=== PATIENT | male | born 1935 | race Caucasian/White ===

== ENCOUNTER 2020-08-22 20:21 | Emergency (ER) | payer OTHER, MEDICAID ==
[~2020-08-22] VITALS: Ht 165.1 cm; Wt 74.8 kg
--- NOTE | 2020-08-22 20:21 | NUR ---
PT BIBA BLS. TAKEN TO BED 9
--- NOTE | 2020-08-22 20:39 | NUR ---
Dr. Douglas examining patient.
[2020-08-22 20:40] VITALS: BP 107/62
--- NOTE | 2020-08-22 21:02 | NUR ---
see complete assessment.
[2020-08-22 21:07] LABS: BASOPHILS % (AUTO) 0.7 % (0.0-2.0); EOSINOPHILS % (AUTO) 0.8 % (0.0-4.0); HEMATOCRIT 28.7 % (36-52); HEMOGLOBIN 9.5 g/dL (12.0-18.0); LYMPHOCYTES # (AUTO) 0.8 K/uL (2.0-11.5); LYMPHOCYTES % (AUTO) 15.5 % (20.5-51.1); MEAN CORPUSCULAR HEMOGLOBIN 32 pg (27-31); MEAN CORPUSCULAR HGB CONC 33 g/dL (33-37); MEAN CORPUSCULAR VOLUME 95.7 fL (80-94); MONOCYTES # (AUTO) 0.4 K/uL (0.8-1.0); MONOCYTES % (AUTO) 8.1 % (1.7-9.3); NEUTROPHILS # (AUTO) 3.9 K/uL (1.8-7.7); NEUTROPHILS % (AUTO) 74.9 % (42.2-75.2); PLATELET COUNT (AUTO) 143 K/uL (140-450); RED CELL DISTRIBUTION WIDTH 15.1 % (11.6-13.7); WHITE BLOOD COUNT (AUTO) 5.2 K/uL (4.8-10.8)
[2020-08-22 21:18] LABS: ANION GAP 11.4 (8-16); ASPARTATE AMINOTRANSFERASE 22 U/L (15-37); CHLORIDE 109 mmol/L (98-107); CREATININE 1.5 mg/dL (0.6-1.3); GLUCOSE 159 mg/dL (74-106); POTASSIUM 4.4 mmol/L (3.5-5.1); SODIUM SERUM 143 mmol/L (136-145); TOTAL BILIRUBIN 0.3 mg/dL (0.0-1.0); UREA NITROGEN, BLOOD 34 mg/dL (7-18)
[2020-08-22 21:19] LABS: ACETAMINOPHEN < 0.5 ug/ml (10-30); SALICYLATE < 2.8 mg/dL (2.8-20.0)
--- NOTE | 2020-08-22 21:21 | NUR ---
pt taken to CT via radela.
--- NOTE | 2020-08-22 21:25 | NUR ---
pt returned from CT.
--- NOTE | 2020-08-22 21:37 | NUR ---
Dr. Douglas with pt and POA to explain CT results.
[2020-08-22] MEDS ORDERED: levETIRAcetam 1,000 MG in NACL 0.9% 100 ML IV ONE (22:05)
[2020-08-22] MEDS ORDERED: levETIRAcetam 100 MG/ML VIAL IV ONE (22:09)
--- NOTE | 2020-08-22 22:32 | NUR ---
pt remains laying down in semi fowlers position. pt a/o x 1 to name. gcs 13. able to move all extremities. POA at bedside. pt does not appear to be in distress at this time.
[2020-08-22] MEDS ORDERED: NICARDIPINE HYDROCHLORIDE 25 MG in NACL 0.9% 240 ML IV ONE (23:10)
[2020-08-22 23:21] VITALS: BP 169/138
[2020-08-22] MEDS ORDERED: NICARDIPINE HYDROCHLORIDE 2.5 MG/ML VIAL IV ONE (23:25)
[2020-08-22 23:31] LABS: PROTHROMBIN TIME 11.2 secs (10.8-13.4)
--- NOTE | 2020-08-22 23:51 | NUR ---
pt started on Nicardipine titration starting at 5mg/hour(50ml/hr)
--- NOTE | 2020-08-23 00:30 | NUR ---
increased titration to 7.5mg/hr.
--- NOTE | 2020-08-23 00:37 | NUR ---
report endorsed to [facility] Nurse Destinee. ETA for transport is [address] Tejeda.
--- NOTE | 2020-08-23 00:43 | NUR ---
[facility] TRANSPORT AT BEDSIDE
--- NOTE | 2020-08-23 00:51 | NUR ---
Patient to be transferred to [facility]. 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 Receiving facility has accepting physician and available space. ER physician has signed transfer form. Patient or responsible constitution party has agreed to transfer and signed form. Patient belongings inventoried and will be sent with patient. Copy of nursing notes, lab reports, EKG, Physicians Orders and X-rays to be sent with patient. Report called to Destinee DEVRIES at receiving facility. [facility] ambulance service has been called for transfer. ETA is 15 minutes.
--- NOTE | 2020-08-23 00:53 | NUR ---
PT TAKEN BY [facility] TRANSPORT TO [facility] ER
--- NOTE | 2020-08-23 19:24 | NUR ---
LATE ENTRY-- NICARDIPINE DRIP DISCONTINUED AT 0053.
== END 2020-08-23 00:53 | disposition designated cancer center or children's hospital (05) ==
LOC: MED 20:21
DX: S06.5X0A Traumatic subdural hemorrhage without loss of consciousness, initial encounter (principal); R55 Syncope and collapse; E11.9 Type 2 diabetes mellitus without complications; I10 Essential (primary) hypertension; F03.90 Unspecified dementia, unspecified severity, without behavioral disturbance, psychotic disturbance, mood disturbance, and anxiety; Z86.73 Personal history of transient ischemic attack (TIA), and cerebral infarction without residual deficits; Z20.822 Contact with and (suspected) exposure to COVID-19; W18.39XA Other fall on same level, initial encounter; Y93.89 Activity, other specified; Y92.89 Other specified places as the place of occurrence of the external cause; Y99.8 Other external cause status
CPT/HCPCS: 36415; 70450; 71045; 73130; 80053; 82550; 84484; 85025; 85610; 85730; 86886; 86900; 86901; 87426; 90471; 90715; 93005; 96365; 96367; 99291; G0480; G0482; J1953; J7030

== ENCOUNTER 2021-02-06 15:11 | Inpatient (IN) | payer OTHER, MEDICAID, SELFPAY ==
[~2021-02-06] VITALS: Ht 165.1 cm; Wt 61.3 kg
[2021-02-06 15:29] VITALS: BP 117/59
--- NOTE | 2021-02-06 15:38 | NUR ---
PT W/C ASSISTED TO BED 3
--- NOTE | 2021-02-06 15:38 | NUR ---
PT BROUGHT TO BED 3 VIA WHEELCHAIR
--- NOTE | 2021-02-06 15:50 | NUR ---
LABS COLLECTED AND GIVEN TO PORTFOLIO ARCHITECT
--- NOTE | 2021-02-06 16:02 | NUR ---
RAD AT BEDSIDE
--- NOTE | 2021-02-06 16:03 | NUR ---
86 YO MALE BIB FAMILY FROM [facility] C/O JADE, FEVER SINCE YESTERDAY AND C/O COUGH X 2 DAYS. ORAL TEMP 102 AT THIS TIME. FAMILY GAVE TYLENOL 1 HOUR AGO. SPOUSE AT BEDSIDE. PT HAS HX OF DEMENTIA, POOR HISTORIAN. AT BEDSIDE. SKIN DRY AND INTACT. GROIN AREA HAS RASH ON PENIS THAT PATIENT SCRATCHES UPON ASSESMENT. PT WEARS DIAPER. PERRLA, SENSATION AND ACTIVE ROM, SOME WEAKNESS TO LEFT SIDE LOWER EXT R/T HX OF NUMEROUS STROKES LAST STROKE APPROX 1YR & HALF AGO ACCORDING TO DAUGHTER. PT HAS GOOD UPPER BODY STRENGTH. ALERT AND ORIENTED X1 TO SELF. RR EVEN AND UNLABORED. PLACED ON MONITOR, SIDE RAILS UP, BED IN LOWEST POSITION. PMH: DM, HTN, DEMENTIA, STROKE, PACE MAKER TO L UPPER CHEST. NKDA
[2021-02-06 16:11] LABS: BASOPHILS % (AUTO) 0.4 % (0.0-2.0); EOSINOPHILS # (AUTO) 0.1 K/uL (0-0.4); EOSINOPHILS % (AUTO) 1.8 % (0.0-4.0); HEMOGLOBIN 9.6 g/dL (12.0-18.0); LYMPHOCYTES # (AUTO) 0.6 K/uL (2.0-11.5); MEAN CORPUSCULAR HEMOGLOBIN 33 pg (27-31); MEAN CORPUSCULAR HGB CONC 33 g/dL (33-37); MEAN CORPUSCULAR VOLUME 98.1 fL (80-94); MONOCYTES # (AUTO) 0.7 K/uL (0.8-1.0); NEUTROPHILS # (AUTO) 6.3 K/uL (1.8-7.7); NEUTROPHILS % (AUTO) 80.8 % (42.2-75.2); PLATELET COUNT (AUTO) 139 K/uL (140-450); RED BLOOD CELL COUNT(AUTO) 2.96 MIL/uL (4.20-6.10); RED CELL DISTRIBUTION WIDTH 14.2 % (11.6-13.7); WHITE BLOOD COUNT (AUTO) 7.8 K/uL (4.8-10.8)
[2021-02-06 16:29] LABS: ALBUMIN 3.3 g/dL (3.4-5.0); ASPARTATE AMINOTRANSFERASE 23 U/L (15-37); CARBON DIOXIDE 25.2 mmol/L (21-32); CHLORIDE 107 mmol/L (98-107); CREATININE 1.5 mg/dL (0.6-1.3); GLUCOSE 222 mg/dL (74-106); POTASSIUM 4.2 mmol/L (3.5-5.1); SODIUM SERUM 140 mmol/L (136-145); TOTAL BILIRUBIN 0.5 mg/dL (0.0-1.0); UREA NITROGEN, BLOOD 32 mg/dL (7-18)
[2021-02-06 16:48] LABS: LACTATE DEHYDROGENASE 194 U/L (85-227)
--- NOTE | 2021-02-06 16:52 | NUR ---
GANESH TIMMONS [phone]
--- NOTE | 2021-02-06 16:53 | NUR ---
RIO MALIK INFLUENZA COLLECTED AND WALKED OVER TO LAB.
[2021-02-06 17:02] LABS: PROTHROMBIN TIME 10.1 secs (10.8-13.4)
--- NOTE | 2021-02-06 17:13 | NUR ---
URINE COLLECTED VIA STRAIGHT CATH USING STERILE TECHNIQUE, SAMPLE WALKED TO LAB.
[2021-02-06 17:27] LABS: APPEARANCE,URINE CLEAR (CLEAR); BILIRUBIN,URINE NEGATIVE (NEGATIVE); BLOOD, URINE NEGATIVE (NEGATIVE); COLOR,URINE YELLOW (YELLOW); LEUKOCYTE ESTERASE ,URINE NEGATIVE (NEGATIVE); NITRITE, URINE NEGATIVE (NEGATIVE); UGLUCOSE NEGATIVE (NEGATIVE)
[2021-02-06] MEDS ORDERED: AZITHROMYCIN 500 MG in DEXTROSE 5% 250 ML IV ONE (17:40)
[2021-02-06] MEDS ORDERED: DEXAMETHASONE 10 MG/ML VIAL IVP ONE (17:40)
[2021-02-06] MEDS ORDERED: NACL 0.9% 500 ML IV ONE (17:50)
--- NOTE | 2021-02-06 18:20 | NUR ---
PATIENT REMOVED IV TO R AC, PATIENT ALSO DISCONECTED O2 SAT. PT CLEANED AND REPOSITIONED.
[2021-02-06] MEDS ORDERED: LORazepam 2 MG/ML VIAL IVP ONE (18:25)
[2021-02-06] MEDS ORDERED: LORazepam 2 MG/ML VIAL ONE (18:28)
[2021-02-06] MEDS ORDERED: ACETAMINOPHEN 650 MG/20.3 ML UDC PO ONE (18:30)
[2021-02-06] MEDS ORDERED: cefTRIAXone 1,000 MG VIAL ONE (18:41)
[2021-02-06] MEDS ORDERED: AZITHROMYCIN 500 MG INJ VIAL IV ONE (18:58)
[2021-02-06] MEDS ORDERED: DEXAMETHASONE 10 MG/ML VIAL ONE (18:59)
--- NOTE | 2021-02-06 19:00 | NUR ---
RECEIVED REPORT FROM JAYCOB SHOEMAKER FOR CONTINUITY OF CARE
--- NOTE | 2021-02-06 19:20 | NUR ---
SPOKE TO REGARDING UPDATE ON PATIENT
[2021-02-06] MEDS ORDERED: guaiFENesin DM 200/20 MG-10 ML 10 ML UDC PO PRN (21:25)
[2021-02-06] MEDS ORDERED: ONDANSETRON 4 MG/2 ML VIAL IM/IVP PRN (21:25)
[2021-02-06] MEDS ORDERED: ALBUTEROL SULFATE/IPRATROPIU 3 ML SOL IH PRN (21:25)
[2021-02-06] MEDS ORDERED: POTASSIUM CHLORIDE 10 MEQ TABER PO PRN (21:25)
[2021-02-06] MEDS ORDERED: DOCUSATE SODIUM 100 MG GELCAP PO PRN (21:25)
[2021-02-06] MEDS ORDERED: HYDROcodone/APAP 7.5/325 MG 1 TAB PO PRN (21:25)
[2021-02-06] MEDS ORDERED: ACETAMINOPHEN 325 MG TAB PO PRN (21:25)
[2021-02-06 21:56] LABS: CHOL/HDL RATIO 2.9 (1-4.5); FREE T4 (FREE THYROXINE) 0.75 ng/dL (0.76-1.46); MAGNESIUM 1.9 mg/dL (1.8-2.4); PHOSPHORUS 2.6 mg/dL (2.5-4.9); THYROID STIMULATING HORMONE 2.21 uIU/mL (0.34-3.74)
--- NOTE | 2021-02-06 22:00 | NUR ---
ACCOMPANIED PT TO CT SCAN
--- NOTE | 2021-02-06 22:10 | NUR ---
PT IS BACK FROM CT SCAN
[2021-02-06] MEDS ORDERED: PIPERACILLIN/TAZOBACTAM 3.375 GM VIAL IV ONE (22:27)
[2021-02-06] MEDS: PIPERACILLIN/TAZOBACTAM 3.375 GM in DEXTROSE 5% 50 ML IV SCH (22:55)
[2021-02-06] MEDS ORDERED: LORazepam 2 MG/ML VIAL IM/IVP ONE (23:45)
[2021-02-07] MEDS: DEXT 5% /NACL 0.9% 1,000 ML IV SCH ×4 (00:21→22:25)
--- NOTE | 2021-02-07 02:00 | NUR ---
Patient appears to be resting comfortably in bed. Vital Signs within normal limits. Respirations even and unlabored.
--- NOTE | 2021-02-07 03:00 | NUR ---
PT IS VERY CONFUSED AND PULLING OUT MEDICAL TUBES
--- NOTE | 2021-02-07 03:25 | NUR ---
ADMINISTERED AMBIEN 5MG FOR INSOMNIA
[2021-02-07] MEDS: ZOLPIDEM 5 MG TAB PO PRN (03:26)
[2021-02-07] MEDS: LORazepam 2 MG/ML VIAL IVP PRN ×3 (04:27→21:55)
[2021-02-07] MEDS ORDERED: PIPERACILLIN/TAZOBACTAM 3.375 GM VIAL IV ONE (05:43)
[2021-02-07] MEDS: PIPERACILLIN/TAZOBACTAM 3.375 GM in DEXTROSE 5% 50 ML IV SCH ×3 (06:42→21:49)
[2021-02-07 06:43] LABS: BASOPHILS % (AUTO) 0.1 % (0.0-2.0); HEMATOCRIT 29.2 % (36-52); HEMOGLOBIN 9.7 g/dL (12.0-18.0); LYMPHOCYTES # (AUTO) 0.7 K/uL (2.0-11.5); LYMPHOCYTES % (AUTO) 9.8 % (20.5-51.1); MEAN CORPUSCULAR HEMOGLOBIN 33 pg (27-31); MEAN CORPUSCULAR HGB CONC 33 g/dL (33-37); MEAN CORPUSCULAR VOLUME 98.6 fL (80-94); MONOCYTES # (AUTO) 0.4 K/uL (0.8-1.0); MONOCYTES % (AUTO) 5.6 % (1.7-9.3); NEUTROPHILS # (AUTO) 6.3 K/uL (1.8-7.7); NEUTROPHILS % (AUTO) 84.5 % (42.2-75.2); PLATELET COUNT (AUTO) 139 K/uL (140-450); RED BLOOD CELL COUNT(AUTO) 2.96 MIL/uL (4.20-6.10); RED CELL DISTRIBUTION WIDTH 14.5 % (11.6-13.7); WHITE BLOOD COUNT (AUTO) 7.5 K/uL (4.8-10.8)
[2021-02-07 06:49] LABS: ANION GAP 14.6 (8-16); CARBON DIOXIDE 23.3 mmol/L (21-32); CHLORIDE 107 mmol/L (98-107); CREATININE 1.2 mg/dL (0.6-1.3); GLUCOSE 264 mg/dL (74-106); POTASSIUM 3.9 mmol/L (3.5-5.1); SODIUM SERUM 141 mmol/L (136-145); UREA NITROGEN, BLOOD 24 mg/dL (7-18)
--- NOTE | 2021-02-07 07:20 | NUR ---
REPORT RECEIVED FROM JAYCOB CLAY. DANNIELLE OF CARE RECEIVED
--- NOTE | 2021-02-07 07:23 | NUR ---
GIVEN REPORT TO JAYCOB BERRIOS. TRANSFER OF CARE AT THIS TIME
--- NOTE | 2021-02-07 07:54 | NUR ---
RECEIVED PATIENT FROM ER VIA GURNEY. PATIENT IS ADMITTED FOR PNA AND SEPSIS. IV SITE AT LEFT AC 20G, PATENT AND INTACT. RESPIRATIONS ARE EVEN AND UNLABORED. PATIENT IS A&O X1. ALL SAFETY PRECAUTIONS IN PLACE. WILL CONTINUE TO MONITOR.
[2021-02-07] MEDS: ALBUTEROL SULFATE/IPRATROPIU 3 ML SOL IH SCH ×3 (08:03→19:50)
--- NOTE | 2021-02-07 08:06 | NUR ---
Patient will be admitted to care of Dr. Evelio Champagne. Admited to Tele. Will go to room 114. Belongings list completed. Report to JAYCOB Tracey.
--- NOTE | 2021-02-07 09:45 | NUR ---
PT WAS SEEN FOR DYSPHAGIA. PT WAS ABLE TO SAFELY SWALLOW PUREE DIET WITH THIN LIQUID WITHOUT S/S OF ASPIRATION. RECOMMENDATION PUREE DIET WITH THIN LIQUID
--- NOTE | 2021-02-07 10:00 | NUR ---
PATIENT'S BLOOD PRESSURE IS 207/701 WITH HR OF 66. NO S/S OF DISTRESS BUT PATIENT IS CONFUSED. DOCTOR IS AWARE.
--- NOTE | 2021-02-07 10:40 | NUR ---
PATIENT HAS BEEN SCREENED AND CATEGORIZED HIGH NUTRITION RISK. PATIENT WILL BE SEEN WITHIN 1-2 DAYS OF ADMISSION. 02/07/21-02/08/[address]
[2021-02-07] MEDS: PANTOPRAZOLE 40 MG TABEC PO SCH (10:55)
--- NOTE | 2021-02-07 11:00 | NUR ---
SPOKE WITH PATIENT'S DAUGHTER JASON ABOUT MEDICAL HISTORY AND POC. PATIENT'S DAUGHTER VERBALIZED UNDERSTANDING.
[2021-02-07] MEDS: amLODIPine 5 MG TAB PO SCH (12:41)
--- NOTE | 2021-02-07 12:45 | NUR ---
ADMINISTERED SCHEDULED MEDICATIONS. PATIENT IS STABLE, NO S/S OF DISTRESS. ALL SAFETY PRECAUTIONS IN PLACE. WILL CONTINUE TO MONITOR.
--- NOTE | 2021-02-07 14:01 | NUR ---
RECEIVED TORB FOR CCHO PUREE DIET FROM DR. ARRIAGA.
--- NOTE | 2021-02-07 14:57 | NUR ---
02/07/21 RD INITIAL ASSESSMENT COMPLETED PLEASE REFER TO NUTRITION ASSESSMENT UNDER CARE ACTIVITY FOR ESTIMATED NUTRITIONAL NEEDS. 1. RECOMMENDED PUREE CCHO DIET TOLERATED 2. RECOMMENDED GLUCERNA BID 3. PROVIDE ASSISTANCE WITH MEALS 4. RD TO FOLLOW-UP 3-5 DAYS, MODERATE RISK NIKKO WEBSTER, RD
--- NOTE | 2021-02-07 16:45 | NUR ---
CHECKED ON PATIENT. PATIENT IS STABLE. NO S/S OF DISTRESS. RESPIRATIONS ARE EVEN AND UNLABORED. ALL SAFETY PRECAUTIONS IN PLACE.
--- NOTE | 2021-02-07 19:25 | NUR ---
RECEIVED REPORT FROM ERICKA DEVRIES FOR CONTINUITY OF CARE. PT SITTING UP AAO. NO APPARENT S/S OF ACUTE DISTRESS. BREATHING EVEN AND UNLABORED ON RA WITH O2 SAT OF 99%. NO C/O CP, SOB OR PAIN. R FA 22G INTACT/PATENT WITH D5NS@120ML/HR. POC AND WHITE COMMUNICATION BOARD UPDATED. BED IN LOW/LOCKED POSITION. CALL LIGHT WITHIN REACH. PT ENCOURAGED TO CALL FOR ANY NEEDS/ASSISTANCE. WILL CONTINUE TO MONITOR.
--- NOTE | 2021-02-07 19:30 | NUR ---
ENDORSED PATIENT TO FROG FARMER RN FOR CONTINUITY OF CARE. PATIENT IS STABLE.
[2021-02-07 20:00] VITALS: BP 178/91
[2021-02-08] VITALS: BP 170/75
[2021-02-08] MEDS: hydrALAZINE 20 MG/ML VIAL IVP PRN ×7 (02:25→12:03)
[2021-02-08 04:00] VITALS: BP 163/67
[2021-02-08] MEDS: PIPERACILLIN/TAZOBACTAM 3.375 GM in DEXTROSE 5% 50 ML IV SCH ×3 (05:06→20:03)
[2021-02-08] MEDS ORDERED: CLINDAMYCIN 600 MG/4 ML VIAL ONE ×2 (05:53→06:50)
[2021-02-08] MEDS: DEXT 5% /NACL 0.9% 1,000 ML IV SCH ×3 (06:45→23:32)
--- NOTE | 2021-02-08 07:30 | NUR ---
RECEIVED REPORT FROM COTTON WASHER RN FOR CONTINUITY OF CARE. PATIENT IS RESTING IN BED. NO S/S OF DISTRESS. ALL SAFETY PRECAUTIONS IN PLACE.
[2021-02-08 07:31] LABS: ANION GAP 14.8 (8-16); BASOPHILS % (AUTO) 0.2 % (0.0-2.0); CARBON DIOXIDE 22.8 mmol/L (21-32); CHLORIDE 106 mmol/L (98-107); CREATININE 1.1 mg/dL (0.6-1.3); EOSINOPHILS # (AUTO) 0.2 K/uL (0-0.4); EOSINOPHILS % (AUTO) 3.5 % (0.0-4.0); GLUCOSE 210 mg/dL (74-106); HEMATOCRIT 32.4 % (36-52); HEMOGLOBIN 10.9 g/dL (12.0-18.0); LYMPHOCYTES # (AUTO) 1.4 K/uL (2.0-11.5); LYMPHOCYTES % (AUTO) 20.7 % (20.5-51.1); MEAN CORPUSCULAR HEMOGLOBIN 33 pg (27-31); MEAN CORPUSCULAR HGB CONC 34 g/dL (33-37); MEAN CORPUSCULAR VOLUME 97.1 fL (80-94); MONOCYTES # (AUTO) 0.7 K/uL (0.8-1.0); MONOCYTES % (AUTO) 10.5 % (1.7-9.3); NEUTROPHILS # (AUTO) 4.5 K/uL (1.8-7.7); NEUTROPHILS % (AUTO) 65.1 % (42.2-75.2); PLATELET COUNT (AUTO) 151 K/uL (140-450); POTASSIUM 3.6 mmol/L (3.5-5.1); RED BLOOD CELL COUNT(AUTO) 3.34 MIL/uL (4.20-6.10); RED CELL DISTRIBUTION WIDTH 13.9 % (11.6-13.7); SODIUM SERUM 140 mmol/L (136-145); UREA NITROGEN, BLOOD 13 mg/dL (7-18)
[2021-02-08] MEDS: ALBUTEROL SULFATE/IPRATROPIU 3 ML SOL IH SCH ×3 (07:50→19:00)
[2021-02-08 08:00] VITALS: BP 172/67
[2021-02-08 08:07] LABS: T4 (THYROXINE) 4.6 ug/dL (4.5-12.0)
[2021-02-08 09:06] LABS: FOLIC ACID 7.3 ng/mL (>3.0)
[2021-02-08] MEDS: PANTOPRAZOLE 40 MG TABEC PO SCH (10:52)
[2021-02-08] MEDS: amLODIPine 5 MG TAB PO SCH (10:52)
[2021-02-08 12:00] VITALS: BP 141/42
--- NOTE | 2021-02-08 12:04 | NUR ---
DID NOT ADMINISTER SCHEDULED DEXTROSE 5% SODIUM CHLORIDE 0.9% AT 0645 AND HYDRALAZINE REASSESSMENT AT 0325.
--- NOTE | 2021-02-08 14:00 | NUR ---
PATIENT REMOVED IV. INSERTED A NEW 22G IV AT RIGHT AC. IV IS PATENT AND INTACT AND FLUSHES WELL. ALL SAFETY PRECAUTIONS IN PLACE.
--- NOTE | 2021-02-08 14:15 | NUR ---
PATIENT'S JASON IS AT THE BEDSIDE WITH PATIENT. PATIENT IS RESTING IN BED. ALL SAFETY PRECAUTIONS IN PLACE.
[2021-02-08 16:00] VITALS: BP 161/52
--- NOTE | 2021-02-08 19:20 | NUR ---
ENDORSED PATIENT TO MEAT PROCESSOR RN FOR CONTINUITY OF CARE. PATIENT IS STABLE.
--- NOTE | 2021-02-08 19:24 | NUR ---
RECEIVED BEDSIDE REPORT FROM DAY RN. PT IS AAOX1. HX DEMENTIA. RESPIRATIONS ARE EQUAL AND UNLABORED ON RA. PT IS BEDREST HX CVA WITH L SIDE WEAKNESS. IV ON RAC INFUSING D5NS AT 120ML/H. PT IS INCONTINENT. PER DAY RN SKIN IS INTACT. C/C FEVER,COUGH,JADE. CHAKA AND PCR NEGATIVE. DX PNA ON IV ABX. POC DISCUSSED WITH PT, NEEDS REINFORCEMENT. BED ALARM ON. CALL LIGHT IS WITHIN REACH. WILL CONTINUE TO MONITOR.
[2021-02-08 20:00] VITALS: BP 141/66
--- NOTE | 2021-02-08 20:03 | NUR ---
VSS. CONRAD MEDICATION GIVEN PER ORDERS. EDUCATION GIVEN PT UNABLE TO VERBALIZED UNDERSTANDING. PT IS AAOX1 MOZAMBICAN SPEAKING. PT ATTEMPTING TO GET OUT OF BED REORIENTED PATIENT. BED ALARM ON.
--- NOTE | 2021-02-08 21:30 | NUR ---
NEW IV STARTED ON R FA 22G ON FIRST ATTEMPT PT TOLERATED WELL. CALL LIGHT IS WITHIN REACH
--- NOTE | 2021-02-08 23:10 | NUR ---
PATIENT WAS CLEANED AND REPOSITION WITH ASSISTANCE OF ANOTHER RN. PT TOLERATED WELL. SAFETY MEASURES ARE IN PLACE. WILL CONTINUE TO MONITOR.
[2021-02-09] VITALS: BP 139/57
--- NOTE | 2021-02-09 | NUR ---
VITAL SIGNS ARE STABLE. PT APPEARS TO BE ASLEEP. SAFETY MEASURES ARE IN PLACE. WILL CONTINUE TO MONITOR.
--- NOTE | 2021-02-09 02:05 | NUR ---
rounds made. pt appears to be asleep, chest rise and fall noted. call light is within reach. will continue to monitor.
[2021-02-09 04:00] VITALS: BP 105/72
--- NOTE | 2021-02-09 04:00 | NUR ---
VITAL SIGNS ARE WITHIN NORMAL LIMITS. PATIENT WAS CLEANED AND REPOSITION WITH ASSISTANCE OF RT. SAFETY MEASURES ARE IN PLACE. WILL CONTINUE TO MONITOR.
[2021-02-09] MEDS: PIPERACILLIN/TAZOBACTAM 3.375 GM in DEXTROSE 5% 50 ML IV SCH ×3 (04:19→21:06)
[2021-02-09] MEDS: LORazepam 2 MG/ML VIAL IVP PRN ×2 (04:45→20:51)
--- NOTE | 2021-02-09 04:45 | NUR ---
PATIENT KEPT ATTEMPTING TO GET OUT OF BED DESPITE FREQUENT REDIRECTION. PATIENT WOULD NOT FOLLOW DIRECTION PULLING ON LINES AND REMOVING TELE BOX. ADMIN PRN ATIVAN. PT WAS CLEANED AND REPOSITION, BED ALARM ON WILL MONITOR FREQUENTLY.
[2021-02-09 05:15] LABS: BASOPHILS % (AUTO) 0.2 % (0.0-2.0); EOSINOPHILS # (AUTO) 0.2 K/uL (0-0.4); EOSINOPHILS % (AUTO) 4.3 % (0.0-4.0); HEMATOCRIT 29.1 % (36-52); HEMOGLOBIN 9.8 g/dL (12.0-18.0); LYMPHOCYTES % (AUTO) 18.9 % (20.5-51.1); MEAN CORPUSCULAR HEMOGLOBIN 33 pg (27-31); MEAN CORPUSCULAR HGB CONC 34 g/dL (33-37); MEAN CORPUSCULAR VOLUME 97.3 fL (80-94); MONOCYTES # (AUTO) 0.6 K/uL (0.8-1.0); MONOCYTES % (AUTO) 12.4 % (1.7-9.3); NEUTROPHILS # (AUTO) 3.3 K/uL (1.8-7.7); NEUTROPHILS % (AUTO) 64.2 % (42.2-75.2); PLATELET COUNT (AUTO) 160 K/uL (140-450); RED BLOOD CELL COUNT(AUTO) 2.99 MIL/uL (4.20-6.10); RED CELL DISTRIBUTION WIDTH 13.8 % (11.6-13.7); WHITE BLOOD COUNT (AUTO) 5.1 K/uL (4.8-10.8)
[2021-02-09 06:11] LABS: ANION GAP 12.2 (8-16); CARBON DIOXIDE 23.5 mmol/L (21-32); CHLORIDE 110 mmol/L (98-107); CREATININE 1.2 mg/dL (0.6-1.3); GLUCOSE 154 mg/dL (74-106); POTASSIUM 3.7 mmol/L (3.5-5.1); SODIUM SERUM 142 mmol/L (136-145); UREA NITROGEN, BLOOD 17 mg/dL (7-18)
[2021-02-09] MEDS: ALBUTEROL SULFATE/IPRATROPIU 3 ML SOL IH SCH ×4 (07:00→19:21)
--- NOTE | 2021-02-09 07:25 | NUR ---
GAVE BEDSIDE REPORT TO DAY RN. PT ENDORSED IN STABLE CONDITION.
--- NOTE | 2021-02-09 07:27 | NUR ---
RECEIVED REPORT FROM ENVIRONMENT FRIENDLY LANDSCAPE DESIGNER RN FOR CONTINUITY OF CARE. PATIENT IS RESTING IN BED. NO S/S OF DISTRESS. ALL SAFETY PRECAUTIONS IN PLACE.
[2021-02-09 08:00] VITALS: BP 177/65
[2021-02-09] MEDS: DEXT 5% /NACL 0.9% 1,000 ML IV SCH ×2 (08:39→16:55)
[2021-02-09] MEDS: amLODIPine 5 MG TAB PO SCH (09:53)
[2021-02-09] MEDS: PANTOPRAZOLE 40 MG TABEC PO SCH (09:53)
--- NOTE | 2021-02-09 10:00 | NUR ---
ADMINISTERED SCHEDULED MEDICATIONS. PATIENT DOES NOT S/S OF DISTRESS. ALL SAFETY PRECAUTIONS IN PLACE.
[2021-02-09 12:00] VITALS: BP 178/67
--- NOTE | 2021-02-09 13:00 | NUR ---
PATIENT'S DAUGHTER JASON IS AT BEDSIDE. PATIENT IS STABLE. NO S/S OF DISTRESS. ALL SAFETY PRECAUTIONS IN PLACE.
--- NOTE | 2021-02-09 14:00 | NUR ---
CHANGED PATIENT WITH ASSISTANCE OF LIVESTOCK AUCTIONEER. PATIENT WAS COOPERATIVE. NO S/S OF DISTRESS. ALL SAFETY PRECAUTIONS IN PLACE.
[2021-02-09 16:00] VITALS: BP 135/54
--- NOTE | 2021-02-09 19:30 | NUR ---
LATE ENTRY: ZITHROMAX 500MG RUN @250ML/HR ENDED AT 2015. BOLUS NS ENDED 1819.
--- NOTE | 2021-02-09 19:43 | NUR ---
ENDORSED PATIENT TO MASSAGE THERAPY INSTRUCTOR RN FOR CONTINUITY OF CARE. PATIENT IS STABLE.
[2021-02-09 20:00] VITALS: BP 164/70
[2021-02-09] MEDS: ZOLPIDEM 5 MG TAB PO PRN (20:49)
[2021-02-09] MEDS: hydrALAZINE 20 MG/ML VIAL IVP PRN (20:54)
[2021-02-10] VITALS: BP 155/71
[2021-02-10] MEDS: DEXT 5% /NACL 0.9% 1,000 ML IV SCH ×2 (02:02→08:45)
[2021-02-10 04:00] VITALS: BP 177/61
[2021-02-10] MEDS: hydrALAZINE 20 MG/ML VIAL IVP PRN (04:24)
[2021-02-10] MEDS: LORazepam 2 MG/ML VIAL IVP PRN (04:25)
[2021-02-10] MEDS: PIPERACILLIN/TAZOBACTAM 3.375 GM in DEXTROSE 5% 50 ML IV SCH ×2 (04:38→13:00)
[2021-02-10 06:07] LABS: BASOPHILS % (AUTO) 0.3 % (0.0-2.0); EOSINOPHILS # (AUTO) 0.1 K/uL (0-0.4); EOSINOPHILS % (AUTO) 1.7 % (0.0-4.0); HEMATOCRIT 30.6 % (36-52); HEMOGLOBIN 10.1 g/dL (12.0-18.0); LYMPHOCYTES # (AUTO) 1.2 K/uL (2.0-11.5); LYMPHOCYTES % (AUTO) 15.3 % (20.5-51.1); MEAN CORPUSCULAR HEMOGLOBIN 33 pg (27-31); MEAN CORPUSCULAR HGB CONC 33 g/dL (33-37); MEAN CORPUSCULAR VOLUME 98.4 fL (80-94); MONOCYTES # (AUTO) 0.8 K/uL (0.8-1.0); MONOCYTES % (AUTO) 10.7 % (1.7-9.3); NEUTROPHILS # (AUTO) 5.6 K/uL (1.8-7.7); PLATELET COUNT (AUTO) 191 K/uL (140-450); RED BLOOD CELL COUNT(AUTO) 3.11 MIL/uL (4.20-6.10); RED CELL DISTRIBUTION WIDTH 13.9 % (11.6-13.7); WHITE BLOOD COUNT (AUTO) 7.8 K/uL (4.8-10.8)
[2021-02-10 07:09] LABS: ANION GAP 15.8 (8-16); CARBON DIOXIDE 20.5 mmol/L (21-32); CHLORIDE 108 mmol/L (98-107); CREATININE 1.2 mg/dL (0.6-1.3); GLUCOSE 188 mg/dL (74-106); POTASSIUM 3.3 mmol/L (3.5-5.1); SODIUM SERUM 141 mmol/L (136-145); UREA NITROGEN, BLOOD 10 mg/dL (7-18)
--- NOTE | 2021-02-10 07:10 | NUR ---
RECEIVED REPORT FROM INBOUND SALES CONSULTANT RN FOR CONTINUITY OF CARE. PATIENT IS RESTING IN BED. NO S/S OF DISTRESS. BREATH EVEN UNLABORED ALL SAFETY PRECAUTIONS IN PLACE
--- NOTE | 2021-02-10 07:14 | NUR ---
REPORT GIVEN TO FIDENCIO RN FOR CONTINUITY OF CARE. PT SITTING UP AAOX1. NO APPARENT S/S OF ACUTE DISTRESS. BREATHING EVEN AND UNLABORED. FIDENCIO TO F/U WITH DR. COX TO FOR ORDERS. BED IN LOW/LOCKED POSITION. CALL LIGHT WITHIN REACH. ALL NEEDS MET AT THIS TIME.
[2021-02-10] MEDS: ALBUTEROL SULFATE/IPRATROPIU 3 ML SOL IH SCH ×2 (07:31→13:39)
--- NOTE | 2021-02-10 07:42 | NUR ---
RECEIVED ORDER FROM DR. COX FOR RESTRAINTS FOR PT, PT ATTEMPTING TO AMBULATE AND AT HIGH RISK FOR INJURY. ALTERNATIVE MEASURES ATTEMPTED AND UNSUCCESSFUL
[2021-02-10 08:00] VITALS: BP 189/88
--- NOTE | 2021-02-10 08:30 | NUR ---
PT SITTING UP AAOX1. NO APPARENT S/S OF ACUTE DISTRESS. BREATHING EVEN AND UNLABORED. GOT MEDICATED ORDERED. PT TOLERATE MEDS WELL WITH NO COMPLAINS. BED IN LOW/LOCKED POSITION. CALL LIGHT WITHIN REACH. ALL NEEDS MET AT THIS TIME.
[2021-02-10] MEDS: amLODIPine 5 MG TAB PO SCH (08:31)
[2021-02-10] MEDS: PANTOPRAZOLE 40 MG TABEC PO SCH (08:32)
--- NOTE | 2021-02-10 10:30 | NUR ---
PT LAYIMG ON BED AAOX1. NO APPARENT S/S OF ACUTE DISTRESS. BREATHING EVEN AND UNLABORED. BED IN LOW/LOCKED POSITION. CALL LIGHT WITHIN REACH. ALL NEEDS MET AT THIS TIME.
--- NOTE | 2021-02-10 11:02 | NUR ---
DC PLANNING: PT RESIDES AT [facility]. PT HAS AN ORDER TO GO TO SNF FOR IV ABX. [facility] ([facility]IV[facility]) UNABLE TO GIVE IV ABX FAXED ALL THE REQUEST TO [facility] CALLED [facility] THOMAS LEFT A MESSAGE AND FAXED TO [facility]. CM TO FOLLOW Addendum: 02/10/21 at 1425 by Eve Mckay RN DC PLANNING: RECEIVED A CALL FROM MARIA C THOMAS AT [facility] COVERING FOR GIOVANI PROVIDE THE AUTH FOR SNF AND TRANSPORT AUTH # [id number]. PT IS ACCEPTED AT [facility] GOING TO ROOM 23B .ARRANGED TRANSPORT WITH [employer]SPORT TRACTOR TRAILER TRUCK DRIVER TIME BETWEEN 3:30PM. NOTIFIED FIDENCIO VARNER CM TO FOLLOW
[2021-02-10 12:00] VITALS: BP 149/57
[2021-02-10] MEDS ORDERED: ACET-1182 PO (12:58)
[2021-02-10] MEDS ORDERED: AMLO-3 PO (12:58)
[2021-02-10] MEDS ORDERED: DOCU-299 PO (12:58)
[2021-02-10] MEDS ORDERED: PANT40EC56 PO (12:58)
[2021-02-10] MEDS ORDERED: ALBU3SOL83 IH (12:58)
[2021-02-10] MEDS ORDERED: HEPA500056 SUBQ (12:58)
[2021-02-10] MEDS ORDERED: PIPE1SOL IV (12:58)
--- NOTE | 2021-02-10 13:24 | NUR ---
[facility] MED NON-ADMINISTERED DUE TO PT BEING DISCONNECTED FOR TRANSFER TO [facility].
--- NOTE | 2021-02-10 14:15 | NUR ---
FULL REPORT GIVING TO FILIPE FROM [facility], PT WILL BE TRANSFERRED TO ROOM 23 BED B.PT CC. FEVER COUGH, TACHYCARDIA AND HYPOXIA. DX. OF PNA, HYPOXIA AND SEPSIS. PT HAVE AN IV, RIGHT FOREARM 22G, PT WILL CONTINUE AB [id number] 7 DAYS. PT HAVE NO WOUND , SKIN INTACT, LAST BM WAS IN . ALL QUESTIONS HAVE BEEN ANSWERED, INFORMED OF RECORDS TECHNICIAN TIME, PT STABLE.
--- NOTE | 2021-02-10 14:28 | NUR ---
DAUGHTER JASON, WAS CONTACTED AND INFORMED ABOUT TRANSFERRING HER DAD TO [facility].
--- NOTE | 2021-02-10 15:03 | NUR ---
PT LAYING ON BED AAOX1. NO APPARENT S/S OF ACUTE DISTRESS. BREATHING EVEN AND UNLABORED. BED IN LOW/LOCKED POSITION. CALL LIGHT WITHIN REACH. ALL NEEDS MET AT THIS TIME.
--- NOTE | 2021-02-10 15:19 | NUR ---
PT LAYING ON BED AAOX1. NO APPARENT S/S OF ACUTE DISTRESS. BREATHING EVEN AND UNLABORED. PT TRANSFERRED BY TRANSPORTING PERSONNEL TO [facility],PT HAS IV ON HIS RIGHT FOREARM , ID BAND REMOVED, ALL PERSONAL BELONGING WITH HIM. PT BLOOD PRESSURE 149/57. NO COMPLAINS.
--- NOTE | 2021-02-10 16:16 | NUR ---
PTS WHEELCHAIR LEFT BEHIND, CALLED DAUGHTER, JASON, AND NOTIFIED HER. SHE STATED THAT THE ONLY TIME SHE COULD COME PICK IT UP IS "WEDNESDAY" DUE TO WORK. CALLED SECURITY TO COME MANAGER LOGISTIC THE WHEELCHAIR AND HAVE IT PLACED IN THE SAFE UNTIL SHE CAN PICK IT UP. WHEELCHAIR HAS BEEN LABELED IN 2 SPOTS FOR IDENTIFICATION.
--- NOTE | 2021-02-10 17:07 | NUR ---
mariela singh called, requesting the results from pts chest xray, and ct scan. received fax number, . will fax over
== END 2021-02-10 15:28 | DRG 871 ==
LOC: MED 15:11 → MTU 20:16
PROVIDERS: ADMIT Family Medicine; ATTEND Family Medicine
DX: A41.9 Sepsis, unspecified organism (principal); J69.0 Pneumonitis due to inhalation of food and vomit; J96.01 Acute respiratory failure with hypoxia; G93.40 Encephalopathy, unspecified; N17.9 Acute kidney failure, unspecified; E78.5 Hyperlipidemia, unspecified; F03.90 Unspecified dementia, unspecified severity, without behavioral disturbance, psychotic disturbance, mood disturbance, and anxiety; Z20.822 Contact with and (suspected) exposure to COVID-19; D53.9 Nutritional anemia, unspecified; D69.6 Thrombocytopenia, unspecified; I12.9 Hypertensive chronic kidney disease with stage 1 through stage 4 chronic kidney disease, or unspecified chronic kidney disease; E11.22 Type 2 diabetes mellitus with diabetic chronic kidney disease; N18.30 Chronic kidney disease, stage 3 unspecified; D63.8 Anemia in other chronic diseases classified elsewhere; Z86.73 Personal history of transient ischemic attack (TIA), and cerebral infarction without residual deficits; Z95.0 Presence of cardiac pacemaker
CPT/HCPCS: 36415; 36600; 71045; 71250; 80048; 80053; 81003; 82150; 82550; 82607; 82728; 82746; 82803; 83036; 83540; 83605; 83615; 83690; 83735; 83880; 84100; 84436; 84439; 84443; 84479; 84484; 85025; 85045; 85379; 85384; 85610; 85730; 86140; 87040; 87081; 87086; 87804; 92610; 92700; 93005; 94640; 96365; 96367; 96375; 97163-GP; 99285; J0360; J0456; J0696; J1100; J1644; J2060; J2543; J3490; J7060; Q0092; U0003

== ENCOUNTER 2022-03-27 08:14 | Emergency (ER) | payer OTHER, MEDICAID ==
[~2022-03-27] VITALS: Ht 167.6 cm; Wt 74.8 kg
[~2022-03-27 08:14] MED LIST: ACET-1182 PO; ALBU3SOL83 IH; AMLO-3 PO; DOCU-299 PO; HEPA500056 SUBQ; PANT40EC56 PO; PIPE1SOL IV
--- NOTE | 2022-03-27 08:15 | NUR ---
Patient BIBA to bed 9 at this time.
[2022-03-27 08:28] VITALS: BP 210/88
--- NOTE | 2022-03-27 08:37 | NUR ---
X-Ray at bedside.
--- NOTE | 2022-03-27 08:37 | NUR ---
87 Y/O MALE BIBA FROM [facility], PER EMS STAFF SAW PT CHOKING, HEIMLICH PERFORMED, NO PROJECTION OF CHOKING MATERIAL OBSERVED, NO FOREIGN BODY NOTED IN THE AIRWAY UPON INSPECTION, SATTING AT 99% RA, COUGH NOTED WITH INCREASED INCIDENCE OF RASPINESS IN THE TONE. NO STRIDOR NOTED, ERMD AT BEDSIDE IN TRIAGE NKA PMH: HTN, DM, DEMENTIA, HEMIPLEGIA AFFECTING LEFT SIDE
[2022-03-27] MEDS ORDERED: amLODIPine 5 MG TAB PO ONE (08:50)
--- NOTE | 2022-03-27 09:32 | NUR ---
BP NOW 174/76 FROM 210/88
[2022-03-27 09:35] VITALS: BP 160/69
--- NOTE | 2022-03-27 09:35 | NUR ---
XIMENA HENLEY SPOKE TO RAFY REGARDING PT STATUS AND DISCHARGE
--- NOTE | 2022-03-27 09:36 | NUR ---
Patient discharged with v/s stable. Written and verbal after care instructions given and explained. Patient verbalized understanding. Wheel Chair Assisted with to car. All questions addressed prior to discharge. Advised to follow up with PMD. JESSICA BATES ASSISTED TO CARE OF TRI SEPTEMBER Addendum: 03/27/22 at 0937 by CHARLOTTE TRI FRIEDMAN SEPTEMBER
== END 2022-03-27 09:36 | disposition home or self-care (01) ==
LOC: MED 08:14
DX: T17.928A Food in respiratory tract, part unspecified causing other injury, initial encounter (principal); I10 Essential (primary) hypertension; E11.9 Type 2 diabetes mellitus without complications; F03.90 Unspecified dementia, unspecified severity, without behavioral disturbance, psychotic disturbance, mood disturbance, and anxiety; Z86.73 Personal history of transient ischemic attack (TIA), and cerebral infarction without residual deficits; Z79.899 Other long term (current) drug therapy; X58.XXXA Exposure to other specified factors, initial encounter; Y93.89 Activity, other specified; Y92.89 Other specified places as the place of occurrence of the external cause; Y99.8 Other external cause status
CPT/HCPCS: 71045; 93005; 99283; Q0092

== ENCOUNTER 2022-08-26 06:20 | Inpatient (IN) | payer OTHER, MEDICAID ==
[~2022-08-26] VITALS: Ht 167.6 cm; Wt 63.5 kg
[2022-08-26 06:25] VITALS: BP 172/77
--- NOTE | 2022-08-26 06:35 | NUR ---
PT RAY MORILLOS. TAKEN TO BED 4
--- NOTE | 2022-08-26 06:40 | NUR ---
RAD at bedside for imaging.
--- NOTE | 2022-08-26 06:48 | NUR ---
PT BIB BLS ambulace from [facility] for c/o SOB. Per facility staff, pt was noted with SOB; 02 sat upon EMS arrival was 97% on RA. Pt arrived to ED in no acute distress. Breathing adequately on RA. o2 sat 99% on RA.
--- NOTE | 2022-08-26 07:18 | NUR ---
Covid/Flu swabs collected and sent to lab.
--- NOTE | 2022-08-26 07:30 | NUR ---
Pt report/care endorsed to JAYCOB Vega for continuity of care. Questions/Concerns answered.
[2022-08-26 08:16] LABS: BASOPHILS % (AUTO) 0.2 % (0.0-2.0); EOSINOPHILS % (AUTO) 0.3 % (0.0-4.0); HEMATOCRIT 34.3 % (36-52); HEMOGLOBIN 10.7 g/dL (12.0-18.0); LYMPHOCYTES # (AUTO) 1.1 K/uL (2.0-11.5); LYMPHOCYTES % (AUTO) 13.6 % (20.5-51.1); MEAN CORPUSCULAR HEMOGLOBIN 32 pg (27-31); MEAN CORPUSCULAR HGB CONC 31 g/dL (33-37); MEAN CORPUSCULAR VOLUME 103.2 fL (80-94); MONOCYTES # (AUTO) 0.3 K/uL (0.8-1.0); MONOCYTES % (AUTO) 4.2 % (1.7-9.3); NEUTROPHILS # (AUTO) 6.7 K/uL (1.8-7.7); NEUTROPHILS % (AUTO) 81.7 % (42.2-75.2); PLATELET COUNT (AUTO) 160 K/uL (140-450); RED BLOOD CELL COUNT(AUTO) 3.33 MIL/uL (4.20-6.10); RED CELL DISTRIBUTION WIDTH 14.6 % (11.6-13.7); WHITE BLOOD COUNT (AUTO) 8.3 K/uL (4.8-10.8)
[2022-08-26 08:31] LABS: ANION GAP 15.9 (8-16); CARBON DIOXIDE 22.2 mmol/L (21-32); CHLORIDE 126 mmol/L (98-107); GLUCOSE 312 mg/dL (74-106); POTASSIUM 4.1 mmol/L (3.5-5.1)
[2022-08-26 08:38] LABS: SODIUM SERUM 160 mmol/L (136-145); UREA NITROGEN, BLOOD 88 mg/dL (7-18)
[2022-08-26] MEDS ORDERED: DOCUSATE SODIUM 100 MG GELCAP PO PRN (11:05)
[2022-08-26] MEDS ORDERED: ACETAMINOPHEN 325 MG TAB PO PRN (11:05)
[2022-08-26] MEDS ORDERED: guaiFENesin DM 200/20 MG-10 ML 10 ML UDC PO PRN (11:05)
[2022-08-26] MEDS ORDERED: ZOLPIDEM 5 MG TAB PO PRN (11:05)
[2022-08-26] MEDS ORDERED: POTASSIUM CHLORIDE 10 MEQ TABER PO PRN (11:05)
[2022-08-26] MEDS ORDERED: DEXT 5% /NACL 0.9% 1,000 ML IV SCH (11:05)
[2022-08-26] MEDS ORDERED: ONDANSETRON 4 MG/2 ML VIAL IM/IVP PRN (11:05)
[2022-08-26] MEDS: DEXTROSE 5% 1,000 ML IV SCH ×2 (12:08→20:05)
[2022-08-26] MEDS: SODIUM CHLORIDE FLUSH 10 ML SYR IVF SCH ×2 (12:09→20:36)
--- NOTE | 2022-08-26 12:15 | NUR ---
ATTEMPTED TO STRAIGHT CATH OR URINE SPECIMEN, OBSTRUCTION NOTED. WILL INFORM
[2022-08-26 12:33] LABS: PROTHROMBIN TIME 11.2 secs (10.8-13.4)
[2022-08-26 12:48] LABS: CHOL/HDL RATIO 2.7 (1-4.5); MAGNESIUM 1.9 mg/dL (1.8-2.4); PHOSPHORUS 2.2 mg/dL (2.5-4.9); THYROID STIMULATING HORMONE 1.39 uIU/mL (0.34-3.74)
[2022-08-26 14:44] LABS: ANION GAP 15.5 (8-16); CARBON DIOXIDE 21.3 mmol/L (21-32); CHLORIDE 128 mmol/L (98-107); GLUCOSE 300 mg/dL (74-106); POTASSIUM 3.8 mmol/L (3.5-5.1)
[2022-08-26 14:54] LABS: SODIUM SERUM 161 mmol/L (136-145); UREA NITROGEN, BLOOD 90 mg/dL (7-18)
--- NOTE | 2022-08-26 17:00 | NUR ---
Patient will be admitted to care of ANABELLA ARRIAGA. Admited to MED SURG. Will go to room 107B. Belongings list completed. Report to SELVIN DEVRIES.
--- NOTE | 2022-08-26 17:43 | NUR ---
RECEIVE PATIENT AROUND 1740 WITH WRIST RESTRAINT PRESENT. PER ER NURSE THAT PATIENT COME FROM [facility], ALOC. DIAGNOSIS WITH HYPER NATREMIA; OTHER DIAGNOSIS INCLUDING HYPERGLYCEMIA, VASOMOTOR NEPHROPATHY, ACUTE RESPIRATORY FAILURE. PATIENT HAS HX OF DEMENTIA, ANEMIA, S/P OF PACEMAKER D/T ARRHYTHMIA. PATIENT HAS NKA, FULL CODE, UNABLE TO AMBULATE, CONFUSED, & ADMIT UNDER CARE OF DR. ARRIAGA AND CONSULT WITH DR. COHN. PATIENT MIGHT NEED UROLOGIST CONSULT BECAUSE ER NURSE MENTION THAT UNABLE TO INSERT STRAIGHT CATHETER D/T URETHRA OBSTRUCTION. ER START D5NS @125ML/HR VIA R. FOREARM 20G SITE. NO SKIN OPEN WOUND BUT NOTED SKIN DISCOLORATION, PATIENT ON REGULAR DIET, AND VITAL : T-P-R: 97.8-76-19, O2 SAT: 96%, BP: 187/87. WILL CONTINUE TO MONITOR.
[2022-08-26 17:57] VITALS: BP 187/87
--- NOTE | 2022-08-26 19:16 | NUR ---
ENDORSE PATIENT IN STABLE CONDITION TO PM SHIFT NURSE WHILE IV D5 INFUSING @125ML/HR VIA R.WRIST PIV SITE. PATIENT CONFUSED WITH L.SIDE WEAKNESS.
--- NOTE | 2022-08-26 19:30 | NUR ---
RECEIVED PT FROM DAY RN FOR CONTINUITY OF CARE. PT AWAKE, ALERT AND ORIENTED X 1. FAMILY AT BEDSIDE. ON ROOM AIR, BREATHING EVEN AND UNLABORED. IV ON R FA G22 RUNNING FLUIDS PER MD ORDER. BILATERAL SOFT WRIST RESTRAINTS IN PLACE.ALL PRECAUTIONS IN PLACE. CALL LIGHT WITHIN REACH . WILL CONTINUE TO MONITOR.
[2022-08-26 20:00] VITALS: BP 132/81
[2022-08-26] MEDS: HYDROcodone/APAP 7.5/325 MG 1 TAB PO PRN (20:36)
--- NOTE | 2022-08-26 21:30 | NUR ---
PT CLEANED,CHANGED AND REPOSITIONED. WRIST RESTRAINTS RELEASED FOR 15 MINUTES.PT TOLERATED WELL. ALL PRECAUTIONS IN PLACE. CALL LIGHT WITHIN REACH. WILL CONTINUE TO MONITOR.
--- NOTE | 2022-08-27 03:21 | NUR ---
PT ASLEEP. NO S/SX OF DISTRESS NOTED. ALL PRECAUTIONS IN PLACE. CALL LIGHT WITHIN REACH. WILL CONTINUE TO MONITOR.
[2022-08-27 04:00] VITALS: BP 129/55
[2022-08-27] MEDS: DEXTROSE 5% 1,000 ML IV SCH ×2 (04:11→12:05)
[2022-08-27 04:12] LABS: APPEARANCE,URINE CLEAR (CLEAR); BILIRUBIN,URINE 1+ (NEGATIVE); BLOOD, URINE 3+ (NEGATIVE); COLOR,URINE RED (YELLOW); LEUKOCYTE ESTERASE ,URINE TRACE (NEGATIVE); NITRITE, URINE POSITIVE (NEGATIVE); PH,URINE 6.5 (5.0-9.0); UGLUCOSE 2+ (NEGATIVE)
[2022-08-27 04:28] LABS: RBC,URINE 0-5 /HPF (0-5); WBC,URINE 0-5 /HPF (0-5)
[2022-08-27] MEDS: SODIUM CHLORIDE FLUSH 10 ML SYR IVF SCH ×3 (05:00→23:47)
--- NOTE | 2022-08-27 06:50 | NUR ---
PT IS STABLE. NO ACUTE EVENTS THROUGHOUT THE NIGHT. NO S/SX OF DISTRESS AT THE MOMENT. ALL NEEDS MET. ALL PRECAUTIONS IN PLACE. CALL LIGHT WITHIN REACH. WILL ENDORSE TO DAY SHIFT RN.
--- NOTE | 2022-08-27 07:25 | NUR ---
RECEIVED REPORT FROM REINA GOODMAN FOR CONTINUITY OF CARE. INITIAL ASSESSMENT DONE. ALERT AND NON VERBAL, WITH CONFUSION. SOFT WRIST RESTRAINTS IN PLACE. NO REDNESS OR PAIN NOTED. IVF INFUSING WELL. NO S/S PAIN OR DISCOMFORT. CALL LIGHT KEPT WITHIN REACH. WILL CONTINUE TO MONITOR.
[2022-08-27 07:26] LABS: CARBON DIOXIDE 18.3 mmol/L (21-32); CHLORIDE 124 mmol/L (98-107); CREATININE 1.7 mg/dL (0.6-1.3); POTASSIUM 3.3 mmol/L (3.5-5.1)
[2022-08-27 07:56] LABS: GLUCOSE 437 mg/dL (74-106); SODIUM SERUM 157 mmol/L (136-145); UREA NITROGEN, BLOOD 77 mg/dL (7-18)
[2022-08-27 07:57] LABS: BASOPHILS % (AUTO) 0.1 % (0.0-2.0); HEMATOCRIT 30.3 % (36-52); HEMOGLOBIN 9.8 g/dL (12.0-18.0); LYMPHOCYTES # (AUTO) 0.9 K/uL (2.0-11.5); LYMPHOCYTES % (AUTO) 9.1 % (20.5-51.1); MEAN CORPUSCULAR HEMOGLOBIN 32 pg (27-31); MEAN CORPUSCULAR HGB CONC 32 g/dL (33-37); MEAN CORPUSCULAR VOLUME 100.2 fL (80-94); MONOCYTES # (AUTO) 0.5 K/uL (0.8-1.0); NEUTROPHILS # (AUTO) 8.3 K/uL (1.8-7.7); NEUTROPHILS % (AUTO) 85.8 % (42.2-75.2); PLATELET COUNT (AUTO) 151 K/uL (140-450); RED BLOOD CELL COUNT(AUTO) 3.03 MIL/uL (4.20-6.10); RED CELL DISTRIBUTION WIDTH 14.1 % (11.6-13.7); WHITE BLOOD COUNT (AUTO) 9.6 K/uL (4.8-10.8)
[2022-08-27 08:00] VITALS: BP 141/85
[2022-08-27] MEDS ORDERED: PANTOPRAZOLE 40 MG TABEC PO SCH (09:00)
[2022-08-27 09:07] LABS: T4 (THYROXINE) 4.9 ug/dL (4.5-12.0)
--- NOTE | 2022-08-27 09:35 | NUR ---
SCHEDULED PO MEDICATIONS GIVEN. TOLERATING WELL.
[2022-08-27] MEDS ORDERED: DEXTROSE 50% 50 ML SYR IVP PRN (11:35)
[2022-08-27] MEDS ORDERED: INSULIN LANTUS 100 UNITS/ML 10 ML VIAL SUBQ SCH (11:35)
[2022-08-27] MEDS: INSULIN LISPRO SLIDING SCALE 100 UNITS/ML VIAL SUBQ PRN ×2 (12:10→16:52)
--- NOTE | 2022-08-27 12:12 | NUR ---
BS CHECKED 497. LANTUS GIVEN ORDERED. HUMALOG GIVEN PER SLIDING SCALE. NOTIFIED DR. ARRIAGA, AWAITING FOR RESPONSE.
--- NOTE | 2022-08-27 12:16 | NUR ---
RECEIVED N/O FROM DR. ARRIAGA. GIVEN EXTRA HUMALOG 12 UNITS ONCE. CHANGE IVF TO NORMAL SALINE @ 125 ML/HR. NOTED AND CARRIED OUT. INSULIN GIVEN. TOLERATING WELL.
[2022-08-27] MEDS ORDERED: INSULIN LISPRO 100 UNITS/ML VIAL SUBQ SCH (12:36)
[2022-08-27] MEDS: NACL 0.9% 1,000 ML IV SCH ×2 (12:52→20:50)
[2022-08-27] MEDS ORDERED: POTASSIUM CHLORIDE 40 MEQ, LIDOCAINE 1% 25 MG in NACL 0.9% 250 ML IV SCH (13:00)
--- NOTE | 2022-08-27 14:43 | NUR ---
DC PLANNING ASSESSMENT COMPLETE PLEASE REFER TO ASSESSMENT FOR ADDITIONAL DETAILS PT HAS HX OF DEMENTIA THEREFORE, COLLAT INFO GATHERED FROM PT'S DAUGHTER, JASON. PT IS AN 87 YR OLD MALE ADMITTED TO [facility] FROM MR WITH DX OF HYPERNATREMIA. PT HAS PAST MEDICAL HX OF HYPERTENSION, DIABETES, DEMENTIA. JSAON, PT'S DAUGHTER, REPORTS SHE IS PT'S DPOA. JASON REPORTS FAMILY IS WORKING TO TAKE PT HOME ON HOSPICE, JASON REPORTS WORKING WITH [facility], [facility] [phone]. PT IS REPORTED TO BE BED BOUND AND REQUIRES ASSISTANCE WITH ADL'S THAT MR AIDS WITH. PT IS RESIDENT OF , DATE OF RESIDENCY; AUG 04. JASON REPORTS SHE IS CURRENTLY WORKING WITH [facility]. JASON REPORTS WORKING WITH [facility] FAMILY WOULD LIKE TO TAKE PT HOME ON HOSPICE, ONCE STABLE TO DC. TENTATIVE DC PLAN IS FOR PT TO DC HOME ON HOSPICE WITH [facility]. JASON [facility] AND [facility] ON HOSPICE EVAL. OUTREACHED TO [facility] [phone], TO INQUIRE ON PENDING HOSPICE EVAL. [facility] REPORTS CURRENTLY BEING AT HOSPITAL MEETING WITH JASON TO COMPLETE HOSPICE EVAL WITH PT. ENDORSED TO MARTHA Addendum: 08/27/22 at 1449 by Luisito ALTMAN Amended: Links added.
--- NOTE | 2022-08-27 14:49 | NUR ---
POTASSIUM 40 MEQ IV GIVEN BY RHODA DEVRIES. TOLERATING WELL.
[2022-08-27] MEDS: HYDROcodone/APAP 7.5/325 MG 1 TAB PO PRN (15:24)
--- NOTE | 2022-08-27 15:24 | NUR ---
PRN NORCO WAS GIVEN FOR PAIN MANAGEMENT. TOLERATING WELL.
[2022-08-27 16:00] VITALS: BP 107/52
--- NOTE | 2022-08-27 16:06 | NUR ---
PATIENT HAS BEEN SCREENED AND CATEGORIZED HIGH NUTRITION RISK. PATIENT WILL BE SEEN WITHIN 1-2 DAYS OF ADMISSION. [address]
--- NOTE | 2022-08-27 16:23 | NUR ---
DC PLANNING: PER FAMILY REQUEST JASON STATED PATIENT WILL BE SIGNING TO [facility]. NOTIFIED DR ARRIAGA AND FAXED ALL PAPERWORK TO [facility]. DC PLAN TO GO HOME WITH HOSPICE. CM TO FOLLOW
[2022-08-27] MEDS: BLOOD GLUCOSE MONITORING 1 DEV DEV FS SCH ×2 (16:50→20:39)
--- NOTE | 2022-08-27 16:50 | NUR ---
BS CHECKED 208. INSULIN GIVEN PER SLIDING SCALE.
--- NOTE | 2022-08-27 17:05 | NUR ---
SEEN BY WITH RECOMMENDATIONS: NPO STATUS, REEVALUATED TOMORROW. DR. ARRIAGA NOTIFIED AWAITING FOR RESULT.
--- NOTE | 2022-08-27 18:28 | NUR ---
RECEIVED NEW ORDER: FROM DR ARRIAGA. NPO AND ANTICIPATE DC STACEY WITH HOSPICE. NOTED AND CARRIED OUT.
--- NOTE | 2022-08-27 19:25 | NUR ---
BEDSIDE REPORT GIVEN TO JHONNY FOR CONTINUITY OF CARE. ENDORSED TO JHONNY THAT PT ON NPO AND ANTICIPATE DISCHARGE TO HOME WITH HOSPICE AND SOFT WRIST RESTRAINTS SCHEDULE TO BE RENEWED AT 1950. REMAINS STABLE.
--- NOTE | 2022-08-27 19:26 | NUR ---
RECEIVED ENDORSEMENT FROM NOHEMY BAEZA, PATIENT WAS ASLEEP BUT STABLE DURING SHIFT REPORT. PATIENT WAS NOTED SLEEPING WITH BILATERAL WRIST RESTRAINS BECAUSE ATTEMPTING TO PULL OUT ALL IV AND GET OUT TO OF BED. PATIENT REMAINS CLEAN AND DRY. NO S/S OF PAIN/DISCOMFORT. NO S/S OF RESPIRATORY DISTRESS. SIDE RAILS UP X 3 FOR SAFETY AND ADJUSTMENT. CALL LIGHT WITHIN REACH. NURSING WILL FREQUENT THE ROOM FOR ANTICIPATED NEEDS. [email or web address]
--- NOTE | 2022-08-27 20:40 | NUR ---
CHECKED PATIENT ACCUCHECK AND NOTED 40 RECHECK WAS NOTED 36. COVERING RN KARSTEN WAS NOTIFIED TO GIVE D5 50 PER PROTOCOL. MD WILL BE NOTIFIED. [email or web address]
--- NOTE | 2022-08-27 20:40 | NUR ---
D5 50 IV PUSH ADMINISTERED FOR BLD GLUCOSE OF 36. WILL CONTINUE TO MONITOR
--- NOTE | 2022-08-27 20:59 | NUR ---
CURRENT BLOOD SUGAR WAS NOTED AT 158, MD WAS NOTIFIED. NURSING WILL FREQUENT THIS PATIENT FOR ANTICIPATED NEEDS. [email or web address]
--- NOTE | 2022-08-27 22:41 | NUR ---
Patient's Plan of Care was discussed and reviewed with ARYAN GONZALEZ
--- NOTE | 2022-08-28 | NUR ---
PATIENT BLOOD SUGAR WAS NOTED AT 134. NO S/S OF HYPER/HYPOGLYCEMIA. NURSING NOTED PATIENT AWAKE AND CONFUSED. [email or web address]
--- NOTE | 2022-08-28 02:12 | NUR ---
NURSING NOTED PATIENT IN BED ASLEEP. CHEST RISING AND FALLING WITHOUT INCIDENT. [email or web address]
--- NOTE | 2022-08-28 03:20 | NUR ---
PATIENT WAS UNRESPONSIVE, AND NO NOTED PULSE. CALLED A MARISOL [email or web address]
--- NOTE | 2022-08-28 03:39 | NUR ---
DR RAMIREZ CALLED THE TIME OF . [email or web address]
--- NOTE | 2022-08-28 04:06 | NUR ---
AWAITING CALL BACK FOR [facility] OFFICE. [email or web address]
--- NOTE | 2022-08-28 04:09 | NUR ---
SPOKE WITH FRANK AT THE [facility] OFFICE AND PATIENT HAS NOT [facility] REFERRAL NUMBER. BODY MAY BE RELEASED ANYTIME. [email or web address]
--- NOTE | 2022-08-28 04:11 | NUR ---
SPOKE WITH NILA FROM [facility] AND DECLINED THE REFERRAL. [facility] ID [id number]. [facility]
--- NOTE | 2022-08-28 06:43 | NUR ---
SPOKE WITH ESTEPHANIE MCNEIL TO COME PICK U[ THE BODY. ESTIMATED TIME OF ARRIVAL WILL BE IN TWO HOURS. NURSING WILL ENDORSE TO AM SHIFT NURSE. [email or web address]
--- NOTE | 2022-08-28 07:38 | NUR ---
RECEIVED PATIENTS BODY FROM [employer] ARCHITECT NURSE. ALL REPORTS REGARDING THE NIGHT EVENTS ENDORSED.BODY WILL BE PICKED UP BY JEANETTE, ESTIMATED TIME 9 AM MORNING.
--- NOTE | 2022-08-28 08:36 | NUR ---
DATABASE SOFTWARE TECHNICIAN FROM [facility] CAME TO SKIN PILER PT. VERIFIED PT WITH JAYCOB SALINAS FOR RELEASE. ALL BELONGINGS RELEASED TO [facility].
== END 2022-08-28 08:36 | DRG 682 ==
LOC: MED 06:20 → MTU 10:18
PROVIDERS: ADMIT Family Medicine; ATTEND Family Medicine
PROC: 5A12012 Performance of Cardiac Output, Single, Manual (ICD-10-PCS; principal; 2022-08-28)
PROC: 0BH17EZ Insertion of Endotracheal Airway into Trachea, Via Natural or Artificial Opening (ICD-10-PCS; 2022-08-28)
DX: N17.0 Acute kidney failure with tubular necrosis (principal); G93.41 Metabolic encephalopathy; J96.00 Acute respiratory failure, unspecified whether with hypoxia or hypercapnia; E87.0 Hyperosmolality and hypernatremia; I69.354 Hemiplegia and hemiparesis following cerebral infarction affecting left non-dominant side; N39.0 Urinary tract infection, site not specified; E86.0 Dehydration; D63.8 Anemia in other chronic diseases classified elsewhere; F03.90 Unspecified dementia, unspecified severity, without behavioral disturbance, psychotic disturbance, mood disturbance, and anxiety; R73.9 Hyperglycemia, unspecified; I12.9 Hypertensive chronic kidney disease with stage 1 through stage 4 chronic kidney disease, or unspecified chronic kidney disease; N18.9 Chronic kidney disease, unspecified; N36.8 Other specified disorders of urethra; E87.8 Other disorders of electrolyte and fluid balance, not elsewhere classified; E87.6 Hypokalemia; D72.810 Lymphocytopenia; I49.9 Cardiac arrhythmia, unspecified; Z20.822 Contact with and (suspected) exposure to COVID-19; K21.9 Gastro-esophageal reflux disease without esophagitis; Z95.0 Presence of cardiac pacemaker; I46.9 Cardiac arrest, cause unspecified
CPT/HCPCS: 31500; 36415; 71045; 76770; 80048; 81001; 82150; 82948; 83036; 83690; 83735; 83880; 84100; 84436; 84439; 84443; 84479; 85025; 85610; 85730; 87081; 92526; 92950; 99285; J1815; J2001; J3480; J7030; Q0092